=== PATIENT | male | born 1950 | race Caucasian/White ===

== ENCOUNTER → 2024-02-22 | Outpatient (BNVA) | payer MEDICARE, SELFPAY | END | disposition home or self-care (01) | PROVIDERS: PCP Family Medicine; Referring Provider Family Medicine; Visit Provider Urology | DX: N40.1 Benign prostatic hyperplasia with lower urinary tract symptoms (principal); N13.8 Other obstructive and reflux uropathy; C61 Malignant neoplasm of prostate; E11.9 Type 2 diabetes mellitus without complications; E66.9 Obesity, unspecified; Z68.28 Body mass index [BMI] 28.0-28.9, adult; F17.200 Nicotine dependence, unspecified, uncomplicated | CPT/HCPCS: 81003; 99212; G0463 ==

== ENCOUNTER 2024-11-29 19:30 | Emergency (ER) | payer MEDICARE, MEDICAID, SELFPAY ==
[2024-11-29 19:31] VITALS: BMI 28.3
[2024-11-29 20:07] LABS: Collection Type, Urine Clean Catch
[2024-11-29 20:17] LABS: Bilirubin,Urine Negative (Negative); Blood,Urine Negative (Negative); Clarity,Urine Clear (Clear/Hazy); Color,Urine Colorless (Lt Yel-Yel); Culture Indicated,Urine Not Indicated; Glucose, Urine 4+ (Negative); Ketones,Urine Negative (Negative); Leukocyte Esterase,Urine Negative (Negative); Nitrite,Urine Negative (Negative); PH,Urine 6.0 (5.0-7.0); Protein,Urine Negative (Neg - Trace); RBC,Urine 3 /hpf (0-3); Specific Gravity,Urine 1.003 (1.001-1.035); Squamous Epithelial Cell,Urine < 1 /hpf (0-5); Urobilinogen,Urine Negative mg/dL (0.0-1.0); WBC,Urine 1 /hpf (0-5)
[2024-11-29 20:19] VITALS: BP 143/78; PULSE 108; RESP 20; TEMP 37.2; O2SAT 96
--- NOTE | 2024-11-29 20:23 | XR_ITS ---
Examination: CT abdomen with intravenous contrast CT pelvis with intravenous contrast 2-D coronal reconstructions 2-D sagittal reconstructions Date and time of exam:November 29, 2024, 2146 hrs. Indications: Left lower pelvic pain beginning 2 weeks ago. CTDI: vol (mGy) 8.98 DLP: (mGycm) 243 Technique: Multiple axial sections of the abdomen and pelvis have been obtained. 64 slice high-resolution scanner used. 3 mm axial sections have been obtained, post intravenous injection 60 cc [id number] 2-D sagittal, coronal reconstructions obtained. Low dose protocols were performed. One or more of the following dose reduction techniques were used; automated exposure control, adjustment of the mA and/or KV according to patient size, use of iterative reconstruction technique. Findings: No focal liver or splenic lesions Gallstones No pancreatic or adrenal mass Small benign liver cysts Normal appendix No bowel obstruction or ureteral calculi Urinary bladder wall thickening up to 5 mm Probable TURP defect with moderate prostatomegaly No diverticulitis Impression: Cholelithiasis Normal appendix No hydronephrosis or ureteral calculi Moderate prostatomegaly Urinary bladder wall thickening, consider cystitis, early urinary tract outflow obstruction secondary to prostatomegaly.
--- NOTE | 2024-11-29 20:23 | PD.EDRME ---
Rapid Medical Screening Exam [facility] Arrival date/time: 11/29/24 19:30 74M with history of HTN and DM presents to ED with 2 weeks of worsening LLQ/pelvic pain that radiates to flank. Patient denies dysuria and testicular pain. Chief Complaint: Abdominal Pain Vital signs: Vital Signs Temperature 98.9 F 11/29/24 20:19 Pulse Rate 108 H 11/29/24 20:19 Respiratory Rate 20 11/29/24 20:19 Blood Pressure 143/78 H 11/29/24 20:19 Pulse Oximetry (%) 96 11/29/24 20:19 Oxygen Delivery Method Room Air 11/29/24 20:19
[2024-11-29 21:19] LABS: Basophils # (Auto) 0.1 Thou/mm3 (0.0-0.2); Basophils % (Auto) 1 % (0-2.5); Eosinophils # (Auto) 0.2 Thou/mm3 (0.0-0.5); Eosinophils % (Auto) 2 % (0-10); Hematocrit 39.1 % (41.0-53.0); Hemoglobin 13.6 g/dL (13.5-16.0); Immature Granulocytes Auto 0.04 Thou/mm3 (0.00-0.00); Lymphocytes # (Auto) 2.7 Thou/mm3 (1.0-4.8); Lymphocytes % (Auto) 31 % (10-50); Mean Corpuscular HGB Conc 34.8 g/dl (31.0-37.0); Mean Corpuscular Hemoglobin 28.5 pg (25.0-35.0); Mean Corpuscular Volume 82 fL (80-100); Monocytes # (Auto) 0.6 Thou/mm3 (0.0-0.8); Monocytes % (Auto) 6 % (0-12); Neutrophils # (Auto) 5.3 Thou/mm3 (1.8-7.7); Neutrophils % (Auto) 60 % (37-80); Nucleated Red Blood Cell # 0.00 Thou/mm3 (0.00-0.00); Nucleated Red Blood Cell % 0 /100 WBC (0); Platelet Count 296 Thou/mm3 (140-440); RDW Standard Deviation 38.3 fL (35.1-43.9); Red Blood Count 4.77 Miln/mm3 (4.50-5.90); White Blood Count 8.9 Thou/mm3 (3.8-10.6)
[2024-11-29 21:28] LABS: Alanine Aminotransferase 23 U/L (10-49); Albumin, Serum 5.1 gm/dL (3.4-4.8); Albumin/Globulin Ratio 2.0 (1.2-2.2); Alkaline Phosphatase 72 U/L (46-116); Anion Gap 15 (7-16); Aspartate Amino Transferase 23 U/L (0-34); BUN/Creatinine Ratio 8 Ratio (12-20); Bilirubin,Total 0.3 mg/dL (0.3-1.2); Blood Urea Nitrogen 10 mg/dL (9-23); Calcium 9.9 mg/dL (8.3-10.6); Calcium (Corrected) 9.9 mg/dL (8.5-10.1); Carbon Dioxide 22.2 mMol/L (20.0-31.0); Chloride 102 mMol/L (98-107); Creatinine (Component) 1.2 mg/dL (0.6-1.3); Estimated Creatinine Clearance 52.5 mL/min (>60); Globulin 2.5 gm/dL (2.3-3.5); Glucose 210 mg/dL (74-106); Osmolality,Calculated 282 (275-295); Potassium 4.2 mMol/L (3.4-5.1); Sodium 139 mMol/L (136-145); Total Protein 7.6 gm/dL (5.7-8.2); eGFR > 60 See Note
--- NOTE | 2024-11-29 23:00 | PD.EDABDPN ---
ED Abdominal Pain RME/HPI General Chief Complaint: Abdominal Pain Stated complaint: LLQ PAIN Arrival date/time: 11/29/24 19:30 RME / HPI RME / HPI narrative: 11/29/24 19:30 74M with history of HTN and DM presents to ED with 2 weeks of worsening LLQ/pelvic pain that radiates to flank. Patient denies dysuria and testicular pain. DR. ONEILL MAIN ED EVALUATION: Patient presenting with constant LLQ abdominal pain x approximately 2 weeks [employer]. Pain is constant in nature radiating to the left lower flank and tends to worsen with flexion and extension of the torso. Baseline enlarged prostate aquablation with baseline urinary urgency, frequency, although denies dysuria. No N/V/F or chills. PMH includes Type II DM, Obesity, and BPH. PSH unremarkable. Social history also unremarkable. Related Data Home Medications ?Medication ?Instructions ?Recorded ?Confirmed lisinopril 20 mg tablet 20 mg PO QDAY 02/24/22 02/22/24 metformin 1,000 mg tablet 1,000 mg PO BID 02/24/22 02/22/24 pravastatin 40 mg tablet 40 mg PO QDAY 02/24/22 02/22/24 tamsulosin 0.4 mg capsule 0.4 mg PO QHS 07/07/22 02/22/24 aspirin 81 mg tablet,delayed 81 mg PO QDAY 09/14/23 02/22/24 release phenazopyridine 100 mg tablet 100 mg PO .PRN 02/22/24 02/22/24 (Pyridium) tramadol 25 mg tablet 25 mg PO Q6H PRN 02/22/24 02/22/24 Previous Rx's ?Medication ?Instructions ?Recorded cefdinir 300 mg capsule 300 mg PO BID 7 days #14 caps 11/30/24 morphine 30 mg tablet,extended 30 mg PO Q12H #14 tabs 11/30/24 release promethazine 12.5 mg tablet 12.5 mg PO TID PRN nausea and 11/30/24 vomiting #14 tabs Allergies Allergy/AdvReac Type Severity Reaction Status Date / Time No Known Allergies Allergy Verified 12/05/24 13:26 Review of Systems Review of Systems Systems Reviewed: All systems reviewed, normal except as documented Past Medical History Past Medical History GASTROINTESTINAL: Positive Obesity GENITOURINARY: Positive Benign Prostatic Hyperplasia ENDOCRINE: Positive Diabetes Mellitus Type 2 Social History SMOKING STATUS: Current some day smoker ED Exam Narrative Physical exam: GEN. APPEARANCE: The patient is alert awake oriented X-3 in no distress, lying down comfortably, does not look ill/toxic. Patient has good eye contact. Patient is cooperative. C/o LLQ abdominal pain. VITALS: All vitals were reviewed and the pulse ox is []% on room air which is normal according to my interpretation. HEENT: Normocephalic, atraumatic. Pupils are equal and reactive. Oral mucosa is moist. Patent Nares NECK: Supple, nontender, no thyromegaly, no meningismus, no JVD, no step offs CHEST: Symmetrical, atraumatic, and with equal expansion , Nontender on palpation no deformity and no crepitus. CARDIOVASCULAR: Heart regular rhythm no murmur or gallop rub or extra beats. LUNGS: Clear to auscultation bilaterally with symmetrical chest rise. No laboring tachypnea or wheezing. No intercostal subcostal retraction. No rales and no rhonchi. ABDOMEN: Soft, flat, demonstrates mild to moderate tendderness to the LLQ with slight guarding extending to the left flank There are no abnormal masses palpated. Active and normal bowel sounds. EXTREMITIES: Nontender. No edema. No cyanosis. Patient is able to move all 4 extremities well, with full ROM and good CSM. SKIN: Warm and dry, no jaundice or rashes noted. MUSCULOSKELETAL: No lubar or midline bony tenderness. There is no CVA tenderness. No paraspinal muscle spasm or tenderness. NEURO: Patient is ROGERS x 4, Cranial nerves II through XII grossly intact. There is no focal neurologic deficits noted. GCS is 15, PNS and [employer] appear grossly intact. PSYCHIATRIC: Patient is in normal mood and affect, cooperative, no SI or HI or hallucinations.` Course Quality Measures none Orders Category Date Time Status CT Screening NOW Care 11/29/24 20:23 Completed Insert IV NOW Care 11/29/24 20:[address] abdomen pelvis w con Stat Exams 11/29/24 20:23 Completed CBC Stat Lab 11/29/24 20:56 Completed CMP [Comprehensive Metabolic Panel] Stat Lab 11/29/24 20:56 Completed UA, C/S IF [Urinalysis, C/S if Indicated] Stat Lab 11/29/24 19:54 Completed Metoclopramide Inj [Reglan Inj] Med 11/29/24 23:09 Discontinued 5 mg IVP X1 ONE Morphine* Inj Med 11/29/24 23:07 Discontinued 2 mg IVP X1 ONE cefTRIAXone [Rocephin] Med 11/30/24 01:03 Discontinued 1,000 mg IM X1 ONE Vital Signs Vital signs: Vital Signs Temperature 98.9 F 11/29/24 20:19 Pulse Rate 108 H 11/29/24 20:19 Respiratory Rate 20 11/29/24 20:19 Blood Pressure 143/78 H 11/29/24 20:19 Pulse Oximetry (%) 96 11/29/24 20:19 Oxygen Delivery Method Room Air 11/29/24 20:19 Abdominal Pain MDM MDM Narrative MDM Narrative:: Scribe Attestation: IJoyce, am scribing for and in the presence of Dr. Oneill. Provider Notation: Although this document has been carefully reviewed, there may still be some phonetic and other typographical errors. These errors are purely grammatical due to imperfections in the software program and should not be construed in any way to compromise the substance of the patient's medical care during this visit. Patient presenting with constant LLQ abdominal pain x approximately 2 weeks [employer]. Pain is constant in nature radiating to the left lower flank and tends to worsen with flexion and extension of the torso. Please see PE findings. Laboratory markers, including CBC was essentially unremarkable. Serum chemistries demonstrate mildly elevated BS of 210. UA demonstrates glucosoria, although no signs of infection. CT scan of abdomen/pelvis without evidence of kidney stones, but urinary bladder wall thickening suggestive of cystitis. However, normal appendix shown and incidental finding of cholelithiasis. Patient was hydrated with normal saline, treated with mild-narcotic analgesics and anti-emetics, considered stable for discharge. Lastly will considers antibiotic considering CT suggestive of cystitis. Patient data External records reviewed:: [facility] previous records (No prior ED records available.) Clinical information provided by:: patient Social determinants that could affect healthcare access:: none Patient has the following chronic illnesses:: BPH, Type II DM, Obesity How is presenting disease/condition affected by chronic disease/condition?: exacerbated by Evaluation data The following diagnostics were reviewed and interpreted by me:: lab results and radiology exam(s) Lab and/or radiology exams considered but not ordered:: None Interpretation Summary: RADIOLOGY Abdomen/Pelvis US: Findings: No focal liver or splenic lesions Gallstones No pancreatic or adrenal mass Small benign liver cysts Normal appendix No bowel obstruction or ureteral calculi Urinary bladder wall thickening up to 5 mm Probable TURP defect with moderate prostatomegaly No diverticulitis Impression: Cholelithiasis Normal appendix No hydronephrosis or ureteral calculi Moderate prostatomegaly Urinary bladder wall thickening, consider cystitis, early urinary tract outflow obstruction secondary to prostatomegaly. Medications / Prescriptions Medications or Prescriptions considered but not ordered:: None Medication administrations:: Medication Administration History Discontinued Medications Ceftriaxone Sodium (Ceftriaxone Sodium 500 Mg Vial) 1,000 mg IM X1 ONE Stop: 11/30/24 01:04 Last Admin: 11/30/24 01:19 Dose: 1,000 mg Documented By: TRICE Metoclopramide HCl (Metoclopramide Inj 5 Mg/Ml Vial 2 Ml) 5 mg IVP X1 ONE; Protocol Stop: 11/29/24 23:10 Last Admin: 11/29/24 23:33 Dose: 5 mg Documented By: OLIVIA Morphine Sulfate (Morphine Sulf Inj 4 Mg/Ml Vial) 2 mg IVP X1 ONE Stop: 11/29/24 23:08 Last Admin: 11/29/24 23:32 Dose: 2 mg Documented By: OLIVIA See above if any Consultations Consultation(s) initiated? (list below): No Diagnosis Differential diagnosis abdominal pain: abdominal pain, acute appendicitis, calculus of kidney, constipation, diverticulitis, gastroenteritis, pancreatitis and small bowel obstruction Most likely diagnosis given after review of the tests above:: Cystitis, Renal colic Admission Indicated Admission indicated?: not indicated Explain why admission is indicated or not indicated:: Patient does not meet admission criteria Admission Request Was there a request for admission?: No Disposition Plan Disposition Plan: Discharge Discharge Attestation Discharge Attestation: The patient and all family members were given an opportunity to ask questions and understood the discharge instructions. Discharge instructions specifically effects, indications for sooner follow up or return to the emergency department, and the expected course of current diagnosis. Patient condition: Stable Discharge Plan Plan Patient Disposition: HOME (Self Care) Prescriptions/Referrals Prescriptions/Med Rec: New cefdinir 300 mg capsule 300 mg PO BID 7 Days Qty: 14 0RF promethazine 12.5 mg tablet 12.5 mg PO TID PRN (Reason: nausea and vomiting) Qty: 14 0RF Rx Instructions: 3 doses during day; last dose no later than 4 hr before bedtime morphine 30 mg tablet extended release 30 mg PO Q12H MDD 2 tab Qty: 14 0RF No Action metformin 1,000 mg tablet 1,000 mg PO BID lisinopril 20 mg tablet 20 mg PO QDAY pravastatin 40 mg tablet 40 mg PO QDAY tamsulosin 0.4 mg capsule 0.4 mg PO QHS aspirin 81 mg tablet,delayed release (DR/EC) 81 mg PO QDAY tramadol 25 mg tablet 25 mg PO Q6H PRN phenazopyridine [Pyridium] 100 mg tablet 100 mg PO .PRN Referrals: Danish Valentin MD [Primary Care Provider, Family Practice] - In 1 week Problem List Clinical Impression: Cystitis, Renal colic Patient/Caregiver Discharge Instructions Discharge Activity: activity as tolerated Additional Instructions: Force fluids/medication as directed/follow-up with urologist within 5 to 7 days. Return for fevers escalating abdominal pain persistent vomiting or worsening illness. Print Language: Croatian Stand Alone Forms: Erika Award Info., Patient Portal Info Letter
[2024-11-29] MEDS: MORPHINE SULF INJ 4 MG/ML VIAL 2 MG IVP (23:32)
[2024-11-29] MEDS: METOCLOPRAMIDE INJ 5 MG/ML VIAL 2 ML IVP (23:33)
[2024-11-30] MEDS: CEFTRIAXONE SODIUM 500 MG VIAL 1000 MG IM (01:19)
[2024-11-30 01:34] VITALS: BP 129/75; PULSE 67; RESP 20; TEMP 36.9; O2SAT 96
== END 2024-11-30 01:38 | disposition home or self-care (01) ==
PROVIDERS: Physician Assistant; Emergency Provider Emergency Medicine; PCP Family Medicine
DX: N30.90 Cystitis, unspecified without hematuria (principal); K80.20 Calculus of gallbladder without cholecystitis without obstruction; N40.0 Benign prostatic hyperplasia without lower urinary tract symptoms
CPT/HCPCS: 36415; 74177; 80053; 81001; 85025; 99284; A4649; J0696; J2270; J2765; Q9967